=== PATIENT | female | born 1995 | race Caucasian/White ===

== ENCOUNTER 2017-09-05 13:11 | Emergency (ER) | payer BC ==
[~2017-09-05] VITALS: Ht 160 cm; Wt 59.6 kg
[2017-09-05 13:30] VITALS: TEMP 36.7; Ht 160 cm; Wt 59.6 kg
[2017-09-05] MEDS ORDERED: ACETAMINOPHEN 500 MG TAB PO STA (13:49)
[2017-09-05] MEDS ORDERED: ONDANSETRON 4MG OD TAB PO ONE (14:00)
[2017-09-05] MEDS ORDERED: DOXY100C76 PO (14:08)
[2017-09-05] MEDS ORDERED: OSEL75CA23 PO (14:08)
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
[2017-09-05] MEDS ORDERED: ONDANSETRON HOME PACK 4MG OD TAB PO ONE (14:15)
[2017-09-05 14:28] VITALS: BP 148/89; PULSE 71; O2SAT 98
== END 2017-09-05 14:27 | disposition home or self-care (01) ==
LOC: C.EDB 13:16 → C.EDD 14:27
DX: S06.0X0A Concussion without loss of consciousness, initial encounter (principal); S00.83XA Contusion of other part of head, initial encounter; Y04.8XXA Assault by other bodily force, initial encounter; Y92.89 Other specified places as the place of occurrence of the external cause